=== PATIENT | female | born 1975 | race Caucasian/White ===

== ENCOUNTER 2018-04-27 11:57 | Emergency (ER) | payer MEDICAID ==
[2018-04-27] MEDS: METHYLPREDNISOLONE 125 MG INJ IM (12:43)
[2018-04-27] MEDS: ALBUTEROL 0.083% (NEB) 2.5 MG/3 ML AMP HHN (12:48)
[2018-04-27] MEDS ORDERED: IOHEXOL 300MG/ML 150 ML BTL (15:55)
[2018-04-27] MEDS ORDERED: SOD CHLORIDE 0.9% 100 ML (15:55)
== END 2018-04-27 13:49 | disposition home or self-care (01) ==
LOC: FTE 11:57
DX: J45.901 Unspecified asthma with (acute) exacerbation (principal)
CPT/HCPCS: 94664; 96372; 99284-25

== ENCOUNTER 2018-05-30 09:13 | Emergency (ER) | payer MEDICARE, OTHER, MEDICAID ==
[2018-05-30] MEDS: DEXAMETHASONE 10 MG/ML 1 ML INJ IM (09:34)
[2018-05-30] MEDS: ALBUTEROL 0.5% (NEB) 2.5 MG/0.5 ML AMP INH (09:36)
[2018-05-30] MEDS: ACETAMINOPHEN 325 MG TAB PO (10:32)
== END 2018-05-30 10:43 | disposition home or self-care (01) ==
LOC: FTE 09:13
DX: J45.901 Unspecified asthma with (acute) exacerbation (principal); R40.2412 Glasgow coma scale score 13-15, at arrival to emergency department
CPT/HCPCS: 94644; 96372; 99284-25